=== PATIENT | female | born 1990 | race Caucasian/White ===

== ENCOUNTER 2018-08-20 02:17 | Emergency (ER) | payer SELFPAY ==
[~2018-08-20] VITALS: Ht 162.6 cm; Wt 54.5 kg
--- NOTE | 2018-08-20 02:24 | NUR ---
[place] grossly [place]. Pt admitted to drinking too much. Pt is rousable to name and painful stimuli and is Orientedx4. No reports or evidence of evident trauma. PERRLA. Neuro appears intact, excluding inability to amb and slurred speech. Monitoring applied. Vss. Pt w/ green emesis smelling strongly of alcohol present upon admit to ed. No evidence of wretching or eminent emesis. Head of bed placed at 45 degrees for pt safety. Covered w/ sheet. Wctm.
[2018-08-20 03:10] VITALS: BP 104/69
--- NOTE | 2018-08-20 03:10 | NUR ---
Pt sleeping comfortably on gurney. Rr even and unlabored. Nadn. Alert to verbal stimuli and orientedx4 while awake. Still appears grossly intoxicated.
--- NOTE | 2018-08-20 03:51 | NUR ---
Pt found attempting to get out of bed by this rn. Coaxed to sit back into bed and states she has to go to the bathroom. 1 person assisted to rr and fell asleep on toilet. Italia chiang and this rn got pt into wheelchair and back to bed, all the while pt cursing out staff and threatening bodily harm. Monitoring reapplied on pt and head of bed still at 45 degrees for pt safety.
--- NOTE | 2018-08-20 04:45 | NUR ---
This rn attempted to obtain another bp. Pt swatted arm away and refused bp. Spo2 remains intact.
--- NOTE | 2018-08-20 05:15 | NUR ---
Pt amb w/ steady gait at this time. Amb to rr.
== END 2018-08-20 05:29 | disposition home or self-care (01) ==
LOC: ED 05:10
DX: F10.120 Alcohol abuse with intoxication, uncomplicated (principal); Y90.9 Presence of alcohol in blood, level not specified
CPT/HCPCS: 99283